=== PATIENT | female | born 1975 | race Caucasian/White ===

== ENCOUNTER 2017-03-28 11:48 | Emergency (ER) | payer OTHER ==
[~2017-03-28] VITALS: Ht 160 cm; Wt 81.6 kg
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
[~2017-03-28 11:48] MED LIST: BACTRIM DS TABL1 TA1 PO; BACTRIM DS TABL1 TA2 PO; BACTROBAN15 GM TOP; DIFLUCAN PO; FERROUS SULFATE PO; FIORICET1 TAB PO; FLAGYL PO; IRON325 ( 651 PO; KEFLEX500 M1 PO; MIRALAX17 GM PO; NO MEDICATIONS; PHENERGAN25 M1 PO; PRILOSEC20 MG PO; PYLERA CAPSULE1 CAP PO; TYLENOL #3 PO; ZOFRANODT PO
== END 2017-03-28 14:03 | disposition home or self-care (01) ==
LOC: SED 11:48
DX: S16.1XXA Strain of muscle, fascia and tendon at neck level, initial encounter (principal); F17.200 Nicotine dependence, unspecified, uncomplicated; Z90.710 Acquired absence of both cervix and uterus; V49.40XA Driver injured in collision with unspecified motor vehicles in traffic accident, initial encounter
CPT/HCPCS: 72040; 99284

== ENCOUNTER 2017-04-03 21:18 | Emergency (ER) | payer OTHER ==
[~2017-04-03] VITALS: Ht 160 cm; Wt 81.6 kg
--- NOTE | ~2017-04-03 | EKG ---
PATIENT: HA RUIZ UNIT #: [id number] Ventricular Rate: 78 BPM Atrial Rate: 78 BPM P-R Interval: 122 ms QRS Duration: 96 ms Q-T Interval: 392 ms QTC Calculation(Bezet): 446 ms P [place]: 48 degrees Calculated R [place]: 61 degrees Calculated T [place]: 39 degrees Diagnosis Line: Normal sinus rhythm Diagnosis Line: Normal ECG Diagnosis Line: No previous ECGs available Diagnosis Line: Confirmed by VERONICA BARNEY MD ([id number]) on Diagnosis Line: 04/08/2017 8:21:51 AM INTERPRETING MD: SAVITA HERNANDEZ
[2017-04-03] MEDS ORDERED: IBUPROFEN (21:25)
[2017-04-03 21:51] LABS: URINE SOURCE CLEAN CATCH
[2017-04-03 21:54] LABS: URINE APPEARANCE CLEAR; URINE BILIRUBIN NEG (NEG); URINE BLOOD TRACE-LYSED (NEG); URINE COLOR YELLOW; URINE GLUCOSE NEG (NORM); URINE KETONE NEG (NEG); URINE LEUKOCYTE ESTERASE NEG (NEG); URINE NITRATE NEG (NEG); URINE PH 6.5 (5-8); URINE PROTEIN NEG (NEG); URINE SPECIFIC GRAVITY <=1.005 (1.003-1.035); URINE UROBILINOGEN 0.2 MG/DL (NORM)
[2017-04-03 21:55] LABS: MICRO INDICATED? YES
[2017-04-03 21:59] LABS: URINE BACTERIA NEG (NEG); URINE SQUAMOUS EPITHELIAL CELL OCCAS /[HPF]; URINE WBC 0-2 /[HPF] (0-5)
== END 2017-04-03 22:06 | disposition home or self-care (01) ==
LOC: SED 21:18
PROVIDERS: Emergency Medicine
DX: S39.012A Strain of muscle, fascia and tendon of lower back, initial encounter (principal); V89.2XXA Person injured in unspecified motor-vehicle accident, traffic, initial encounter; Y92.410 Unspecified street and highway as the place of occurrence of the external cause; Z90.710 Acquired absence of both cervix and uterus; F17.200 Nicotine dependence, unspecified, uncomplicated
CPT/HCPCS: 81003; 82947; 93005; 96372; 99284; J1885